=== PATIENT | male | born 1990 | race Caucasian/White ===

== ENCOUNTER 2022-03-25 10:32 | Emergency (ER) | payer MEDICAID ==
[~2022-03-25] VITALS: Ht 170.2 cm; Wt 76.2 kg
[2022-03-25 10:50] VITALS: BP 142/78
--- NOTE | 2022-03-25 10:56 | NUR ---
COVID, FLU SWABS DONE
[2022-03-25] MEDS ORDERED: ACET-10509 PO (12:36)
[2022-03-25] MEDS ORDERED: PROM473S5 PO (12:36)
[2022-03-25] MEDS ORDERED: IBUP-2213 PO (12:36)
[2022-03-25] MEDS ORDERED: TAM75 PO (13:33)
--- NOTE | 2022-03-25 13:41 | NUR ---
Patient discharged with v/s stable. Written and verbal after care instructions given and explained. Patient alert, oriented and verbalized understanding of instructions. Ambulatory with steady gait. All questions addressed prior to discharge. ID band removed. Patient advised to follow up with PMD. Rx of TAMIFLU given. Patient educated on indication of medication including possible reaction and side effects. Opportunity to ask questions provided and answered.
== END 2022-03-25 13:41 | disposition home or self-care (01) ==
LOC: MED 10:32
DX: J10.1 Influenza due to other identified influenza virus with other respiratory manifestations (principal); Z20.822 Contact with and (suspected) exposure to COVID-19; Z79.899 Other long term (current) drug therapy
CPT/HCPCS: 99283